=== PATIENT | female | born 1950 | race American Indian/Alaskan Native ===

== ENCOUNTER 2019-04-12 10:02 | Outpatient (CLI) | payer MEDICARE ==
--- NOTE | 2019-04-13 13:23 | Mammography Report ---
DIGITAL SCREENING MAMMOGRAM WITH CAD, 04/12/2019 INDICATION: Routine screening mammography. TECHNIQUE: Digital bilateral 2D mammography was obtained in the craniocaudal and mediolateral obliq ue projections. This examination was interpreted with the benefit of Computer-Aided Detection analysi s. COMPARISON: 04/02/2016 and 12/20/2014 FINDINGS: Breast Density: The breasts are heterogeneously dense, which may obscure small masses. A partially circumscribed left subareolar asymmetry on the CC view is more prominent than on previous exams. No architectural distortion or suspicious calcifications of the left breast. There is no evid ence of dominant mass, suspicious calcifications or architectural distortion in the right breast. IMPRESSION: Left asymmetry requiring additional imaging. Recommend recall for spot magnification late ral and CC nipple views and left breast ultrasound if needed. Follow up recommendation: Special View: Mag Category 0: Incomplete. Needs additional imaging evaluation and/or prior mammograms for comparison. A "normal" or negative report should not discourage follow up or biopsy of a clinically significant f inding. A written summary of these findings will be mailed to the patient. The patient will be entered into a mammography reporting system which will generate a reminder letter for the patient's next appointmen t at the appropriate interval. The [employer] recommends yearly mammograms starting at age 40 and continuing as l lilly as a woman is in good health. Breast MRI is recommended for women with an approximate 20-25% or greater lifetime risk of breast cancer, including women with a strong family history of breast or ova juan diego cancer or who have been treated for Hodgkin's disease. Signer Name: Daniel Molina MD Signed: 04/13/2019 1:18 PM Workstation Name: [id number]
== END 2019-04-12 10:03 | disposition home or self-care (01) ==
LOC: MAMMO 10:02
PROVIDERS: ATTEND Family Medicine
DX: Z12.31 Encounter for screening mammogram for malignant neoplasm of breast (principal); M19.90 Unspecified osteoarthritis, unspecified site; I10 Essential (primary) hypertension
CPT/HCPCS: 77067

== ENCOUNTER 2019-07-13 09:47 | Outpatient (CLI) | payer MEDICARE ==
--- NOTE | 2019-07-13 10:42 | Mammography Report ---
Left DIGITAL DIAGNOSTIC MAMMOGRAM HISTORY: ABNORMAL SCREENING MAMMOGRAM TECHNIQUE: Spot views focused in the left subareolar breast were obtained.] COMPARISON: 04/12/2019, 04/02/2016, 12/20/2014. FINDINGS: Breast Density: Scattered fibroglandular appearance of the breast tissue. Spot views focused to the left subareolar breast show the previously noted finding seen on recent scr eening mammogram does not persist and there is stable mammographic appearance in this region compared to multiple prior mammograms. No evidence of malignancy. IMPRESSION: No mammographic evidence of malignancy. A routine screening mammogram due in March 2020 is recomme nded. BIRADS 1: Negative. FURTHER INFORMATION: According to the [employer], yearly mammograms are recommend ed starting at age 40 and continuing as long as a woman is in good health. Clinical Breast Exams shou ld be part of a periodic health exam-about every 3 years for women in their 20s and 30s and every yea r for women 40 and over. Breast self exam is an option for women starting in their 20s. Any breast ch shonda noted on a breast self exam should be reported promptly to the patient's healthcare provider. Br east MRI is recommended for women with an approximately 20-25% or greater lifetime risk of breast can cer, including women with a strong family history of breast or ovarian cancer and women who have been treated for Hodgkin's disease. A negative Mammography report should not discourage follow up or biopsy of a clinically significant f inding and/or abnormality. Dense breast tissue may obscure small neoplasms. The patient will be entered into a reminder system with a target due date for the next screening mamm ogram. Signer Name: Ata Dempsey MD Signed: 07/13/2019 10:37 AM Workstation Name: [id number]
== END 2019-07-13 09:48 | disposition home or self-care (01) ==
LOC: MAMMO 09:47
PROVIDERS: ATTEND Family Medicine
DX: R92.8 Other abnormal and inconclusive findings on diagnostic imaging of breast (principal)
CPT/HCPCS: 77066